=== PATIENT | female | born 1935 | race Caucasian/White ===

== ENCOUNTER → 2019-08-07 | Outpatient (CLI) | payer MEDICARE ==
[~2019-08-07] MED LIST: LEVSOD100; SIMV40; TRAM50 PO
== END | disposition home or self-care (01) ==
LOC: LAB SHORT 15:24 → PLD 15:24
DX: C44.41 Basal cell carcinoma of skin of scalp and neck (principal); L57.0 Actinic keratosis
CPT/HCPCS: 88305

== ENCOUNTER → 2019-12-04 | Outpatient (CLI) | payer MEDICARE, OTHER ==
[~2019-12-04] MED LIST changes: +Hydrocodone-Ap1 EA23 PO; +Vibramycin100 MG PO
== END | disposition home or self-care (01) ==
LOC: LAB SHORT 08:21 → PLD 08:21
DX: C44.41 Basal cell carcinoma of skin of scalp and neck (principal)
CPT/HCPCS: 88305

== ENCOUNTER 2020-01-12 19:03 | Emergency (ER) | payer MEDICARE, OTHER ==
[~2020-01-12] VITALS: Ht 162.6 cm; Wt 74.8 kg
[2020-01-12] MEDS ORDERED: Norco 5-325 Ta1 EACH PO (21:31)
== END 2020-01-12 21:37 | disposition home or self-care (01) ==
LOC: ER 19:03
DX: S51.012A Laceration without foreign body of left elbow, initial encounter (principal); W18.30XA Fall on same level, unspecified, initial encounter
CPT/HCPCS: 12032; 99283-25

== ENCOUNTER → 2020-09-03 | Outpatient (CLI) | payer MEDICARE, OTHER ==
[~2020-09-03] MED LIST changes: +Norco 5-325 Ta1 EACH PO
== END ==
LOC: LAB 12:14 → LAB SHORT 12:14
DX: D48.5 Neoplasm of uncertain behavior of skin (principal)
CPT/HCPCS: 88305

== ENCOUNTER → 2021-03-15 | Outpatient (CLI) | payer MEDICARE ==
[2021-03-17 15:09] LABS: Adenovirus F 40/41 Not Detected (NOT DETECT); Astrovirus Not Detected (NOT DETECT); Campylobacter Sp Not Detected (NOT DETECT); Cryptosporidium Not Detected (NOT DETECT); Cyclospora Cayetanensis Not Detected (NOT DETECT); E. Coli O157 Not Detected (NOT DETECT); Entamoeba Histolytica Not Detected (NOT DETECT); Enteroaggregative E. coli-EAEC Not Detected (NOT DETECT); Enteropathogenic E. coli-EPEC Not Detected (NOT DETECT); Enterotoxigenic E. coli-ETEC Not Detected (NOT DETECT); Giardia Lamblia Not Detected (NOT DETECT); Norovirus GI/GII Not Detected (NOT DETECT); Plesiomonas Shigelloides Not Detected (NOT DETECT); Rotavirus A Not Detected (NOT DETECT); Salmonella Sp Not Detected (NOT DETECT); Sapovirus Not Detected (NOT DETECT); Shiga Toxin-prod E. coli-STEC Not Detected (NOT DETECT); Shigella/Enteroin E. coli-EIEC Not Detected (NOT DETECT); Vibrio Cholerae Not Detected (NOT DETECT); Vibrio Sp Not Detected (NOT DETECT); Yersinia Enterocolitica Not Detected (NOT DETECT)
== END | disposition home or self-care (01) ==
LOC: LAB SHORT 08:30 → LAB 08:30
PROVIDERS: Family Medicine
DX: R19.7 Diarrhea, unspecified (principal)
CPT/HCPCS: 0097U

== ENCOUNTER → 2022-08-27 | Outpatient (CLI) | payer MEDICARE | END | disposition home or self-care (01) | LOC: LAB SHORT 14:43 → LAB 14:43 | DX: C44.629 Squamous cell carcinoma of skin of left upper limb, including shoulder (principal) | CPT/HCPCS: 88305 ==

== ENCOUNTER → 2022-09-23 | Outpatient (CLI) | payer MEDICARE | END | disposition home or self-care (01) | LOC: PLD 07:26 → LAB SHORT 07:26 | DX: C44.629 Squamous cell carcinoma of skin of left upper limb, including shoulder (principal) | CPT/HCPCS: 88305 ==

== ENCOUNTER → 2023-02-11 | Outpatient (CLI) | payer MEDICARE | LOC: PLD 12:54 | DX: C44.41 Basal cell carcinoma of skin of scalp and neck (principal); D04.5 Carcinoma in situ of skin of trunk ==

== ENCOUNTER 2023-11-26 14:33 | Observation (INO) | payer MEDICARE ==
[~2023-11-26] VITALS: Ht 172.7 cm; Wt 73.3 kg
[~2023-11-26 14:33] MED LIST changes: -SIMV40; +SIMV40 PO
[2023-11-26 15:40] LABS: BASOPHILS ABSOLUTE AUTO 0.03 K/mm3 (0.00-0.23); BASOPHILS PERCENT AUTO 1 % (0-2); EOSINOPHILS ABSOLUTE AUTO 0.06 K/mm3 (0.00-0.68); EOSINOPHILS PERCENT AUTO 1 % (0-6); Hematocrit 30.9 % (33.0-51.0); Hemoglobin 9.7 g/dL (11.5-16.0); IMMATURE GRAN ABSOLUTE AUTO 0.02 K/mm3 (0.00-0.10); IMMATURE GRAN PERCENT AUTO 0 % (0-1); LYMPHOCYTES ABSOLUTE AUTO 1.54 K/mm3 (0.84-5.20); LYMPHOCYTES PERCENT AUTO 25 % (21-46); MONOCYTES ABSOLUTE AUTO 0.56 K/mm3 (0.16-1.47); MONOCYTES PERCENT AUTO 9 % (4-13); Mean Corpuscular HGB 26.7 pg (26.0-34.0); Mean Corpuscular HGB Conc 31.4 g/dL (31.5-36.5); Mean Corpuscular Volume 85 fL (80-100); Mean Platelet Volume 9.7 fL (9.1-12.4); NEUTROPHILS PERCENT AUTO 64 % (41-73); Platelet Count 241 K/mm3 (150-400); RDW Coefficient Variation 15.2 % (11.7-14.2); RDW Standard Deviation 47.4 fL (35.1-46.3); Red Blood Cell Count 3.63 M/mm3 (3.80-5.20); White Blood Cell Count 6.21 K/mm3 (4.00-11.30)
[2023-11-26 15:58] LABS: Albumin, Blood 3.1 g/dL (3.4-5.0); Albumin/Globulin Ratio 1.2 (0.8-1.8); Bilirubin, Total 0.3 mg/dL (0.1-1.0); Bun/Creatinine Ratio 14.1 (12.0-20.0); Calcium, Blood 8.1 mg/dL (8.5-10.1); Creatinine, Blood 0.71 mg/dL (0.40-1.00); Globulin, Blood 2.6 g/dL (2.2-4.0); Potassium, Blood 3.5 mmol/L (3.5-5.5); Total Protein, Blood 5.7 g/dL (6.4-8.2)
[2023-11-26] MEDS ORDERED: Acetaminophen 500 MG Tab PO ONE (16:20)
[2023-11-26] MEDS ORDERED: OMEP20ER PO (16:31)
[2023-11-26] MEDS ORDERED: Bentyl20 MG PO (16:32)
[2023-11-26] MEDS ORDERED: ONE A DAY PREN1 EACH PO (16:33)
[2023-11-26] MEDS ORDERED: FISH OIL 1,0001 EA10 PO (16:33)
[2023-11-26] MEDS ORDERED: Preservision S1 EACH PO (16:34)
[2023-11-26] MEDS ORDERED: Ketorolac Tromethamine 15mg Vial IV ONE (16:40)
[2023-11-26] MEDS ORDERED: NS 1,000 ML IV SCH (17:50)
[2023-11-26] MEDS ORDERED: Aspirin 325 MG Tab PO ONE (18:00)
[2023-11-26 18:55] LABS: Source, Urine Straight Cath
[2023-11-26 19:09] LABS: Appearance, Urine Clear (Clear); Bilirubin, Urine Neg (Neg); Blood, Urine Neg (Neg); Color, Urine Yellow (P-Yellow); Glucose Qualitative, Urine Neg (Neg); Ketones, Urine 1+ (Neg); Leukocyte Esterase, Urine Neg (Neg); Nitrite, Urine Neg (Neg); Protein, Urine Neg (Neg); Urobilinogen, Urine NORM (Normal); pH, Urine 6.5 (5.0-8.0)
[2023-11-26 21:19] VITALS: BP 148/61
[2023-11-27 02:46] VITALS: BP 130/43
--- NOTE | 2023-11-27 04:16 | NUR ---
SHIFT SUMMARY: Pt is admitted for acute CVA and is a DNR. is alert and able to make most needs known. ADLs have been a mix of 1-2 p depending on activity. Has stated that she has had a minor headache but did not want anything for with when offered. Iv to right AC has been running NS at 150. Evangelista reports sinus in the 70s. PT was transferred from the ED about 2100. Daughter was in attendance. Was transferred to bed via slide. Meds, history were completed by this LN. admit assessment complete by 2nd charge. Wound to left lower leg pic taken and in chart.
[2023-11-27 07:44] VITALS: BP 148/69
[2023-11-27] MEDS ORDERED: Enoxaparin 40 MG/0.4 ML SYR SC SCH (09:00)
[2023-11-27] MEDS ORDERED: Aspirin 81 MG Chew PO SCH (09:00)
[2023-11-27] MEDS ORDERED: Clopidogrel Bisulfate 75 MG Tab PO SCH (10:00)
[2023-11-27 15:37] VITALS: BP 137/64
[2023-11-27 19:35] VITALS: BP 138/58
--- NOTE | 2023-11-27 19:36 | NUR ---
SHIFT SUMMARY: PT IS A/O X 3, [place], STANDBY ASSIST TO BATHROOM. PLEASANT AND COOPERATIVE. PT WORKED WITH PT TODAY AND DID WELL. PT DOES HAVE DIFFICULTY WITH FEEDING HERSELF. SPEECH THERAPY PLACED PRECAUTIONS. PT ALSO HAD DIFFICULTY WITH FOLLOWING DIRECTIONS DOING LEONARD CARE AFTER USING BATHROOM. PT C/O L ARM PAIN AND REPORTED SHE HAD FALLEN AT HOME ON THAT SIDE. NOTIFIED AND ORDER RECEIVED FOR X RAY. PT DOWN TO X-RAY AT SHIFT CHANGE. NO OTHER CONCERNS OR CHANGES.
[2023-11-28 04:23] VITALS: BP 156/67
--- NOTE | 2023-11-28 05:37 | NUR ---
EOS NOTE: PATIENT HAS BEEN FORGETFUL, DOES NOT ALWAYS USE CALL LIGHT FOR ASSISTANCE. PATIENT REQUIRES FREQUENT CUES TO USE WALKER APPROPRIATELY. VSS, MOSTLY CONTINENT OF BOWEL/BLADDER, MILDLY CONFUSED & IMPULSIVE BUT EASILY REORIENTED.
[2023-11-28 07:20] VITALS: BP 147/74
[2023-11-28] MEDS ORDERED: ATOR40TA PO (12:13)
[2023-11-28] MEDS ORDERED: ASPI81CH PO (12:13)
[2023-11-28] MEDS ORDERED: CLOP75 PO (12:14)
--- NOTE | 2023-11-28 15:55 | NUR ---
DISCHARGE SUMMARY: PT DISCHARGED HOME TODAY WITH HER DAUGHTER. DAUGHTER ASSSISTED PT WITH GETTING DRESSED. PT AND DAUGHTER EDUCATED ON DISCHARGE INSTRUCTIONS AND MEDICATIONS. PT ESCORTED TO POV VIA WHEELCHAIR BY STUDENT CHALINO LAMAR.
== END 2023-11-28 13:43 | disposition home or self-care (01) ==
LOC: ER 14:33 → MEDS 14:34
PROVIDERS: Emergency Medicine; ADMIT Internal Medicine
DX: I63.9 Cerebral infarction, unspecified (principal); I65.21 Occlusion and stenosis of right carotid artery; E03.9 Hypothyroidism, unspecified; E78.5 Hyperlipidemia, unspecified; K21.9 Gastro-esophageal reflux disease without esophagitis; Z66 Do not resuscitate; Z79.890 Hormone replacement therapy; Z79.899 Other long term (current) drug therapy
CPT/HCPCS: 70450; 70551; 73030; 80053; 81003; 84484; 85025; 92610; 93005; 93010; 93306; 93880; 96372; 96374; 97112; 97116; 97161; 99285-25; A9270; G0378; J1650; J1885; J7030

== ENCOUNTER → 2024-04-12 | Outpatient (CLI) | payer MEDICARE ==
[~2024-04-12] MED LIST changes: +ASPI81CH PO; +ATOR40TA PO; +Bentyl20 MG PO; +CLOP75 PO; +FISH OIL 1,0001 EA10 PO; +OMEP20ER PO; +ONE A DAY PREN1 EACH PO; +Preservision S1 EACH PO
== END ==
LOC: LAB SHORT 13:30 → LAB 13:30
DX: L08.9 Local infection of the skin and subcutaneous tissue, unspecified (principal)
CPT/HCPCS: 87070; 87205

== ENCOUNTER → 2024-05-05 | Outpatient (CLI) | payer MEDICARE ==
[~2024-05-05] MED LIST changes: +LIDO700A20 TOP
== END | disposition home or self-care (01) ==
LOC: LAB 05-04 15:01
DX: R35.0 Frequency of micturition (principal)
CPT/HCPCS: 87077; 87086; 87186

== ENCOUNTER 2024-05-12 12:45 | Emergency (ER) | payer MEDICARE ==
[~2024-05-12] VITALS: Ht 162.6 cm; Wt 69.8 kg
[~2024-05-12 12:45] MED LIST changes: -LIDO700A20 TOP
[2024-05-12] MEDS ORDERED: OxyCODONE HCL 5 MG TAB PO ONE (14:25)
[2024-05-12 14:52] LABS: Albumin, Blood 2.9 g/dL (3.4-5.0); Bilirubin, Total 0.2 mg/dL (0.1-1.0); Bun/Creatinine Ratio 12.9 (12.0-20.0); Calcium, Blood 7.9 mg/dL (8.5-10.1); Creatinine, Blood 0.62 mg/dL (0.40-1.00); Globulin, Blood 2.8 g/dL (2.2-4.0); Potassium, Blood 4.1 mmol/L (3.5-5.5); Total Protein, Blood 5.7 g/dL (6.4-8.2)
[2024-05-12 15:05] LABS: BASOPHILS ABSOLUTE AUTO 0.05 K/mm3 (0.00-0.23); BASOPHILS PERCENT AUTO 1 % (0-2); EOSINOPHILS ABSOLUTE AUTO 0.04 K/mm3 (0.00-0.68); EOSINOPHILS PERCENT AUTO 1 % (0-6); Hemoglobin 9.4 g/dL (11.5-16.0); IMMATURE GRAN ABSOLUTE AUTO 0.02 K/mm3 (0.00-0.10); IMMATURE GRAN PERCENT AUTO 0 % (0-1); LYMPHOCYTES PERCENT AUTO 25 % (21-46); MONOCYTES ABSOLUTE AUTO 0.44 K/mm3 (0.16-1.47); MONOCYTES PERCENT AUTO 8 % (4-13); Mean Corpuscular HGB 28.5 pg (26.0-34.0); Mean Corpuscular HGB Conc 32.4 g/dL (31.5-36.5); Mean Corpuscular Volume 88 fL (80-100); Mean Platelet Volume 9.8 fL (9.1-12.4); NEUTROPHILS ABSOLUTE AUTO 3.45 K/mm3 (1.96-9.15); NEUTROPHILS PERCENT AUTO 65 % (41-73); Platelet Count 323 K/mm3 (150-400); RDW Coefficient Variation 16.7 % (11.7-14.2); RDW Standard Deviation 53.9 fL (35.1-46.3)
[2024-05-12 17:54] VITALS: BP 146/72
[2024-05-12] MEDS ORDERED: LIDO700A20 TOP (18:35)
== END 2024-05-12 18:58 | disposition home or self-care (01) ==
LOC: ER 12:45
PROVIDERS: Student in an Organized Health Care Education/Training Program
DX: S80.02XA Contusion of left knee, initial encounter (principal); M25.551 Pain in right hip; W18.30XA Fall on same level, unspecified, initial encounter; Z91.030 Bee allergy status; Z79.899 Other long term (current) drug therapy; Z79.82 Long term (current) use of aspirin
CPT/HCPCS: 72192; 73562-LT; 80053; 85025; 99285-25; A9270

== ENCOUNTER → 2024-05-26 | Outpatient (CLI) | payer MEDICARE ==
[~2024-05-26] MED LIST changes: +LIDO700A20 TOP
[2024-05-26 15:20] LABS: Source, Urine Voided
[2024-05-26 16:08] LABS: Appearance, Urine Clear (Clear); Bilirubin, Urine Neg (Neg); Blood, Urine Neg (Neg); Glucose Qualitative, Urine Neg (Neg); Ketones, Urine Neg (Neg); Leukocyte Esterase, Urine Neg (Neg); Nitrite, Urine Neg (Neg); Protein, Urine Neg (Neg); Specific Gravity, Urine 1.005 (1.003-1.022); Urobilinogen, Urine NORM (Normal)
[2024-05-26 16:15] LABS: Color, Urine Pale Yellow (P-Yellow)
== END ==
LOC: LAB SHORT 15:17 → LAB 15:17
PROVIDERS: Family Medicine
DX: N39.0 Urinary tract infection, site not specified (principal)
CPT/HCPCS: 81003

== ENCOUNTER 2024-07-29 15:18 | Emergency (ER) | payer MEDICARE ==
[~2024-07-29] VITALS: Ht 167.6 cm; Wt 70.3 kg
[2024-07-29 15:50] LABS: BASOPHILS ABSOLUTE AUTO 0.01 K/mm3 (0.00-0.23); BASOPHILS PERCENT AUTO 0 % (0-2); EOSINOPHILS PERCENT AUTO 0 % (0-6); Hemoglobin 10.8 g/dL (11.5-16.0); IMMATURE GRAN ABSOLUTE AUTO 0.06 K/mm3 (0.00-0.10); IMMATURE GRAN PERCENT AUTO 0 % (0-1); LYMPHOCYTES ABSOLUTE AUTO 1.13 K/mm3 (0.84-5.20); LYMPHOCYTES PERCENT AUTO 8 % (21-46); MONOCYTES ABSOLUTE AUTO 0.95 K/mm3 (0.16-1.47); MONOCYTES PERCENT AUTO 6 % (4-13); Mean Corpuscular HGB 27.6 pg (26.0-34.0); Mean Corpuscular HGB Conc 32.7 g/dL (31.5-36.5); Mean Corpuscular Volume 84 fL (80-100); Mean Platelet Volume 8.9 fL (9.1-12.4); NEUTROPHILS ABSOLUTE AUTO 12.63 K/mm3 (1.96-9.15); NEUTROPHILS PERCENT AUTO 86 % (41-73); Platelet Count 643 K/mm3 (150-400); RDW Coefficient Variation 14.6 % (11.7-14.2); Red Blood Cell Count 3.91 M/mm3 (3.80-5.20); White Blood Cell Count 14.78 K/mm3 (4.00-11.30)
[2024-07-29 15:54] LABS: Albumin, Blood 2.6 g/dL (3.4-5.0); Albumin/Globulin Ratio 0.7 (0.8-1.8); Bilirubin, Total 0.4 mg/dL (0.1-1.0); Bun/Creatinine Ratio 26.3 (12.0-20.0); Calcium, Blood 8.5 mg/dL (8.5-10.1); Creatinine, Blood 0.57 mg/dL (0.40-1.00); Globulin, Blood 3.9 g/dL (2.2-4.0); Potassium, Blood 4.3 mmol/L (3.5-5.5); Total Protein, Blood 6.5 g/dL (6.4-8.2)
[2024-07-29 17:11] LABS: Source, Urine Clean Catch
[2024-07-29 17:19] LABS: Bilirubin, Urine Neg (Neg); Blood, Urine Neg (Neg); Color, Urine Yellow (P-Yellow); Glucose Qualitative, Urine Neg (Neg); Ketones, Urine Neg (Neg); Leukocyte Esterase, Urine Neg (Neg); Nitrite, Urine Neg (Neg); Protein, Urine 2+ (Neg); Specific Gravity, Urine 1.015 (1.003-1.022); Urobilinogen, Urine NORM (Normal)
[2024-07-29 17:28] LABS: Appearance, Urine Hazy (Clear)
[2024-07-29 17:30] LABS: Amorphous Light (0-Heavy); Bacteria Mod /hpf; Calcium Oxalate Crystals Rare /hpf; Hyaline Casts 0-2 /lpf (0-2); Mucus Mod (0-Heavy); Red Blood Cells, Urine 0-2 /hpf (0-2); Renal Epithelial Rare /hpf (0-Rare); Squamous Epithelial Cells Rare /hpf (Few); White Blood Cells, Urine 0-2 /hpf (0-5)
[2024-07-29 17:31] LABS: Transitional Epithelial Cells Rare /hpf (0-Rare)
[2024-07-29] MEDS ORDERED: Metoclopramide HCl 5MG / ML 2ML Vial IV ONE (18:45)
[2024-07-29 22:44] VITALS: BP 127/56
== END 2024-07-29 22:49 | disposition home or self-care (01) ==
LOC: ER 15:18
PROVIDERS: Student in an Organized Health Care Education/Training Program
DX: R14.0 Abdominal distension (gaseous) (principal); R30.0 Dysuria; R11.10 Vomiting, unspecified; E78.5 Hyperlipidemia, unspecified; E03.9 Hypothyroidism, unspecified; Z79.82 Long term (current) use of aspirin; Z79.02 Long term (current) use of antithrombotics/antiplatelets; Z79.899 Other long term (current) drug therapy; Z91.013 Allergy to seafood
CPT/HCPCS: 51701; 51702; 51798; 74177; 80053; 81001; 83605; 85025; 96374-59; 99284; J2765; Q9967

== ENCOUNTER → 2024-07-31 | Outpatient (CLI) | payer MEDICARE ==
[2024-07-31 10:45] LABS: Source, Urine Foley catheter
[2024-07-31 13:36] LABS: Bilirubin, Urine Neg (Neg); Blood, Urine Neg (Neg); Glucose Qualitative, Urine Neg (Neg); Ketones, Urine 2+ (Neg); Leukocyte Esterase, Urine Neg (Neg); Nitrite, Urine Neg (Neg); Protein, Urine 1+ (Neg); Urobilinogen, Urine NORM (Normal)
[2024-07-31 13:42] LABS: Appearance, Urine Clear (Clear); Color, Urine Yellow (P-Yellow)
== END ==
LOC: LAB SHORT 08:45 → LAB 08:45
PROVIDERS: Family Medicine
DX: N39.0 Urinary tract infection, site not specified (principal); R10.30 Lower abdominal pain, unspecified
CPT/HCPCS: 87086

== ENCOUNTER 2024-08-03 19:04 | Inpatient (IN) | payer MEDICARE ==
[2024-08-03] VITALS (10 sets, daily range): BP systolic 104–121; BP diastolic 46–75
[~2024-08-03] VITALS: Ht 160 cm; Wt 71.2 kg
[~2024-08-03 19:04] MED LIST changes: +ATOR20 PO; -ATOR40TA PO; +EUTHYROX125 MCG PO; -LEVSOD100
[2024-08-03] MEDS ORDERED: Morphine Sulfate 4 MG/1 ML Injection IV ONE (19:40)
[2024-08-03] MEDS ORDERED: Ondansetron HCl 2 MG / ML 2ML Vial IV ONE (19:40)
[2024-08-03] MEDS ORDERED: Metoclopramide HCl 5MG / ML 2ML Vial IV ONE (20:00)
[2024-08-03] MEDS ORDERED: HYDROmorphone HCl/Pf 1MG SYR IV PRN ×2 (20:00→22:20)
[2024-08-03] MEDS ORDERED: Piperacillin/Tazobactam Sod 4.5 GM in NS 100 ML IV ONE (20:45)
[2024-08-03] MEDS ORDERED: NS 1,000 ML IV SCH (20:45)
[2024-08-03] MEDS ORDERED: FLU VACC TS2024-25(6MOS UP)/PF 45 MCG/0.5 ML SYRINGE IM SCH (21:05)
[2024-08-03] MEDS ORDERED: FentaNYL Citrate 50 MCG/ML 2 ML Injection IV PRN ×2 (21:05→22:20)
[2024-08-03] MEDS ORDERED: NS 1,000 ML IV ONE (21:05)
[2024-08-03] MEDS ORDERED: Ondansetron HCl 2 MG / ML 2ML Vial IV PRN ×2 (21:05→22:20)
[2024-08-03] MEDS ORDERED: Bupivacaine 0.5% HCl 5 MG/ML 30MLVIAL ONE (21:37)
[2024-08-03] MEDS ORDERED: Albuterol 2.5 MG/3 ML VIAL INH PRN (22:20)
[2024-08-03] MEDS ORDERED: FentaNYL Citrate 50 MCG/ML 2 ML Injection ONE (22:35)
[2024-08-03] MEDS ORDERED: propofoL 20 ML IV ONE (22:35)
[2024-08-03] MEDS ORDERED: Dexamethasone Sod Phos 10 MG/ML 1ML VIAL ONE (22:36)
[2024-08-03] MEDS ORDERED: Rocuronium Bromide 10 MG/ML 5ML Injection IV ONE (22:36)
[2024-08-03] MEDS ORDERED: Ondansetron HCl 2 MG / ML 2ML Vial ONE (22:36)
[2024-08-03] MEDS ORDERED: Phenylephrine HCl 100 MCG/ML-NS 10MLSYR (1MG/10ML) ONE (22:53)
[2024-08-04] VITALS (51 sets, daily range): BP systolic 84–126; BP diastolic 34–80
[2024-08-04] MEDS ORDERED: Sugammadex Sodium 200 MG/2ML SDV (100 MG/ML) ONE (01:09)
[2024-08-04] MEDS ORDERED: Piperacillin/Tazobactam Sod 4.5 GM in NS 100 ML IV SCH (02:00)
[2024-08-04] MEDS ORDERED: Acetaminophen 325 MG TABLET PO PRN (02:00)
[2024-08-04] MEDS ORDERED: NS 1,000 ML IV SCH ×2 (02:05→15:35)
[2024-08-04 04:18] LABS: Hematocrit 31.2 % (33.0-51.0); Hemoglobin 9.5 g/dL (11.5-16.0); Mean Corpuscular HGB 27.1 pg (26.0-34.0); Mean Corpuscular HGB Conc 30.4 g/dL (31.5-36.5); Mean Platelet Volume 8.7 fL (9.1-12.4); Platelet Count 475 K/mm3 (150-400); RDW Coefficient Variation 15.1 % (11.7-14.2); RDW Standard Deviation 49.5 fL (35.1-46.3); Red Blood Cell Count 3.51 M/mm3 (3.80-5.20)
[2024-08-04 04:31] LABS: Mean Corpuscular Volume 89 fL (80-100)
[2024-08-04 04:39] LABS: BAND PERCENT MAN 11 % (0-8); BASOPHILS PERCENT MAN 0 % (0-2); EOSINOPHILS PERCENT MAN 0 % (0-6); LYMPHOCYTES ABSOLUTE MAN 0.32 K/mm3 (0.84-5.20); LYMPHOCYTES PERCENT MAN 6 % (21-46); MONOCYTES ABSOLUTE MAN 0.27 K/mm3 (0.16-1.47); MONOCYTES PERCENT MAN 5 % (4-13); SEG NEUTROPHILS PERCENT MAN 78 % (41-73); TOTAL CELLS COUNTED 100
[2024-08-04 04:57] LABS: Albumin/Globulin Ratio 0.6 (0.8-1.8); Bilirubin, Total 0.3 mg/dL (0.1-1.0); Bun/Creatinine Ratio 27.8 (12.0-20.0); Calcium, Blood 7.4 mg/dL (8.5-10.1); Creatinine, Blood 0.5 mg/dL (0.40-1.00); Globulin, Blood 3.2 g/dL (2.2-4.0); Potassium, Blood 4.5 mmol/L (3.5-5.5); Total Protein, Blood 5.2 g/dL (6.4-8.2)
[2024-08-04] MEDS ORDERED: OxyCODONE 5 mg/Acetamin 325 mg TABLET PO PRN (15:35)
[2024-08-05] VITALS (24 sets, daily range): BP systolic 88–124; BP diastolic 38–81
[2024-08-05 03:40] LABS: Hemoglobin 7.7 g/dL (11.5-16.0); Mean Corpuscular HGB 27.2 pg (26.0-34.0); Mean Corpuscular HGB Conc 32.1 g/dL (31.5-36.5); Mean Corpuscular Volume 85 fL (80-100); Mean Platelet Volume 8.5 fL (9.1-12.4); Platelet Count 427 K/mm3 (150-400); RDW Coefficient Variation 15.1 % (11.7-14.2); Red Blood Cell Count 2.83 M/mm3 (3.80-5.20); White Blood Cell Count 8.95 K/mm3 (4.00-11.30)
[2024-08-05 03:59] LABS: Bun/Creatinine Ratio 20.1 (12.0-20.0); Calcium, Blood 7.4 mg/dL (8.5-10.1); Creatinine, Blood 0.6 mg/dL (0.40-1.00); Potassium, Blood 3.4 mmol/L (3.5-5.5)
[2024-08-05] MEDS ORDERED: Potassium Chloride 20 MEQ TabCR PO ONE (09:00)
[2024-08-05 09:38] LABS: Hematocrit 28.3 % (33.0-51.0); Hemoglobin 8.8 g/dL (11.5-16.0)
[2024-08-05] MEDS ORDERED: Lactated Ringer's 1,000 ML IV ONE (10:45)
[2024-08-05] MEDS ORDERED: Bisacodyl 10 MG Supp PR PRN (11:45)
[2024-08-05] MEDS ORDERED: HYDROmorphone HCl/Pf 1MG SYR IV ONE (11:50)
[2024-08-05] MEDS ORDERED: HYDROmorphone HCl/Pf 1MG SYR IV PRN (11:50)
[2024-08-05] MEDS ORDERED: OxyCODONE HCL 5 MG TAB PO PRN (13:10)
[2024-08-05] MEDS ORDERED: Acetaminophen 650 MG Supp PR PRN (13:15)
[2024-08-05] MEDS ORDERED: CALCIUM GLUC IN NACL, ISO-OSM 100 ML IV ONE (16:25)
[2024-08-05] MEDS ORDERED: Calcium Chloride 10% 2,000 MG in NS 100 ML IV ONE (16:25)
[2024-08-06] VITALS (21 sets, daily range): BP systolic 91–114; BP diastolic 40–75
[2024-08-06 04:44] LABS: Hematocrit 27.4 % (33.0-51.0); Hemoglobin 8.6 g/dL (11.5-16.0); Mean Corpuscular HGB 27.3 pg (26.0-34.0); Mean Corpuscular HGB Conc 31.4 g/dL (31.5-36.5); Mean Corpuscular Volume 87 fL (80-100); Mean Platelet Volume 8.7 fL (9.1-12.4); Platelet Count 508 K/mm3 (150-400); RDW Coefficient Variation 15.3 % (11.7-14.2); RDW Standard Deviation 48.8 fL (35.1-46.3); Red Blood Cell Count 3.15 M/mm3 (3.80-5.20); White Blood Cell Count 10.74 K/mm3 (4.00-11.30)
[2024-08-06 05:08] LABS: Bun/Creatinine Ratio 13.2 (12.0-20.0); Creatinine, Blood 0.61 mg/dL (0.40-1.00)
[2024-08-06] MEDS ORDERED: Pantoprazole Sodium 40 MG Tab PO SCH (06:00)
[2024-08-06] MEDS ORDERED: Levothyroxine Sodium 0.1 MG Tab PO SCH (06:00)
[2024-08-06] MEDS ORDERED: Enoxaparin 40 MG/0.4 ML SYR SC SCH (09:00)
[2024-08-06] MEDS ORDERED: Atorvastatin 40 MG Tab PO SCH (09:00)
[2024-08-06] MEDS ORDERED: Mineral Oil 133 ML Enema PR ONE (09:25)
[2024-08-06] MEDS ORDERED: Lactated Ringer's 1,000 ML IV ONE (09:25)
[2024-08-07] VITALS (17 sets, daily range): BP systolic 89–126; BP diastolic 40–65
[2024-08-07 03:49] LABS: Hematocrit 24.7 % (33.0-51.0); Hemoglobin 7.8 g/dL (11.5-16.0); Mean Corpuscular HGB 27.3 pg (26.0-34.0); Mean Corpuscular HGB Conc 31.6 g/dL (31.5-36.5); Mean Corpuscular Volume 86 fL (80-100); Mean Platelet Volume 8.7 fL (9.1-12.4); Platelet Count 454 K/mm3 (150-400); RDW Coefficient Variation 15.2 % (11.7-14.2); RDW Standard Deviation 48.8 fL (35.1-46.3); Red Blood Cell Count 2.86 M/mm3 (3.80-5.20); White Blood Cell Count 9.34 K/mm3 (4.00-11.30)
[2024-08-07 04:01] LABS: Bun/Creatinine Ratio 17.6 (12.0-20.0); Calcium, Blood 8.2 mg/dL (8.5-10.1); Creatinine, Blood 0.51 mg/dL (0.40-1.00); Potassium, Blood 3.7 mmol/L (3.5-5.5)
[2024-08-07] MEDS ORDERED: NS 250 ML IV PRN (12:10)
[2024-08-08] VITALS (7 sets, daily range): BP systolic 100–126; BP diastolic 41–104
[2024-08-09] MEDS ORDERED: Piperacillin/Tazobactam Sod 4.5 GM in NS 100 ML IV SCH
[2024-08-09 00:16] VITALS: BP 121/50
[2024-08-09 04:00] VITALS: BP 111/64
[2024-08-09 06:58] LABS: BASOPHILS ABSOLUTE AUTO 0.02 K/mm3 (0.00-0.23); BASOPHILS PERCENT AUTO 0 % (0-2); EOSINOPHILS ABSOLUTE AUTO 0.19 K/mm3 (0.00-0.68); EOSINOPHILS PERCENT AUTO 2 % (0-6); Hematocrit 26.8 % (33.0-51.0); Hemoglobin 8.5 g/dL (11.5-16.0); IMMATURE GRAN ABSOLUTE AUTO 0.15 K/mm3 (0.00-0.10); IMMATURE GRAN PERCENT AUTO 2 % (0-1); LYMPHOCYTES ABSOLUTE AUTO 1.01 K/mm3 (0.84-5.20); LYMPHOCYTES PERCENT AUTO 13 % (21-46); MONOCYTES ABSOLUTE AUTO 0.59 K/mm3 (0.16-1.47); MONOCYTES PERCENT AUTO 8 % (4-13); Mean Corpuscular HGB 26.6 pg (26.0-34.0); Mean Corpuscular HGB Conc 31.7 g/dL (31.5-36.5); Mean Corpuscular Volume 84 fL (80-100); Mean Platelet Volume 8.9 fL (9.1-12.4); NEUTROPHILS ABSOLUTE AUTO 5.95 K/mm3 (1.96-9.15); NEUTROPHILS PERCENT AUTO 75 % (41-73); Platelet Count 463 K/mm3 (150-400); RDW Standard Deviation 46.4 fL (35.1-46.3); White Blood Cell Count 7.91 K/mm3 (4.00-11.30)
[2024-08-09 07:12] LABS: Bun/Creatinine Ratio 14.2 (12.0-20.0); Creatinine, Blood 0.49 mg/dL (0.40-1.00); Potassium, Blood 3.1 mmol/L (3.5-5.5)
[2024-08-09 08:17] VITALS: BP 124/53
[2024-08-09] MEDS ORDERED: Potassium Chloride 20 MEQ TabCR PO ONE (09:00)
[2024-08-09 15:30] VITALS: BP 108/48
[2024-08-09 20:21] VITALS: BP 113/49
[2024-08-09 21:04] VITALS: BP 116/55
[2024-08-10 04:24] VITALS: BP 119/59
[2024-08-10 06:28] LABS: Hematocrit 25.9 % (33.0-51.0); Hemoglobin 8.3 g/dL (11.5-16.0); Mean Corpuscular HGB 26.8 pg (26.0-34.0); Mean Corpuscular Volume 84 fL (80-100); Platelet Count 469 K/mm3 (150-400); RDW Coefficient Variation 15.4 % (11.7-14.2); RDW Standard Deviation 46.9 fL (35.1-46.3); White Blood Cell Count 9.68 K/mm3 (4.00-11.30)
[2024-08-10 06:59] VITALS: BP 108/53
[2024-08-10 07:07] LABS: Bun/Creatinine Ratio 16.7 (12.0-20.0); Calcium, Blood 7.9 mg/dL (8.5-10.1); Creatinine, Blood 0.54 mg/dL (0.40-1.00)
[2024-08-10] MEDS ORDERED: TPN Consult Notification XX ONE (12:40)
[2024-08-10 13:06] LABS: Magnesium, Blood 1.9 mg/dL (1.6-2.4)
[2024-08-10 13:09] LABS: Phosphorus, Blood 1.5 mg/dL (2.5-4.9)
[2024-08-10 14:10] VITALS: BP 102/52
[2024-08-10] MEDS ORDERED: Trospium Chloride 20 MG Tab PO SCH (14:40)
[2024-08-10] MEDS ORDERED: NS 500 ML IV SCH ×2 (14:40→23:00)
[2024-08-10] MEDS ORDERED: Parenteral Electolytes 40 ML,Potassium Phosphate Dibasic 30 MM,Multivitamins 10 ML,ZINC... IV SCH (17:00)
[2024-08-10] MEDS ORDERED: PARENTERAL ELECTOLYTES POTASSIUM PHOSPHATE DIBASIC MM MULTIVITAMINS ZINC IV SCH (17:00)
[2024-08-10] MEDS ORDERED: [UNRECOGNIZED DRUG - OTHER] IV SCH (17:00)
[2024-08-10 17:56] VITALS: BP 113/52
[2024-08-10 19:17] VITALS: BP 109/48
[2024-08-10 21:14] LABS: Source, Urine Foley catheter
[2024-08-10 21:24] LABS: Appearance, Urine Hazy (Clear); Bilirubin, Urine Neg (Neg); Blood, Urine 5+ (Neg); Color, Urine Amber (P-Yellow); Glucose Qualitative, Urine Neg (Neg); Ketones, Urine Neg (Neg); Leukocyte Esterase, Urine 2+ (Neg); Nitrite, Urine Pos (Neg); Protein, Urine 3+ (Neg); Specific Gravity, Urine 1.015 (1.003-1.022); Urobilinogen, Urine NORM (Normal)
[2024-08-10 21:46] LABS: Amorphous Light (0-Heavy); Bacteria Mod /hpf; Calcium Oxalate Crystals Few /hpf; Mucus Light (0-Heavy); Red Blood Cells, Urine TNTC /hpf (0-2); Squamous Epithelial Cells Few /hpf (Few); White Blood Cells, Urine 0-2 /hpf (0-5)
[2024-08-11 04:10] VITALS: BP 122/58
[2024-08-11 05:20] LABS: Hematocrit 22.9 % (33.0-51.0); Hemoglobin 7.4 g/dL (11.5-16.0); Mean Corpuscular HGB 26.4 pg (26.0-34.0); Mean Corpuscular HGB Conc 32.3 g/dL (31.5-36.5); Mean Corpuscular Volume 82 fL (80-100); Mean Platelet Volume 8.8 fL (9.1-12.4); Platelet Count 426 K/mm3 (150-400); RDW Coefficient Variation 15.4 % (11.7-14.2); RDW Standard Deviation 45.2 fL (35.1-46.3); White Blood Cell Count 8.14 K/mm3 (4.00-11.30)
[2024-08-11 05:48] LABS: Alanine Aminotransfer (ALT/SGP 9 U/L (12-78); Albumin, Blood 1.4 g/dL (3.4-5.0); Albumin/Globulin Ratio 0.5 (0.8-1.8); Alk Phos 61 U/L (50-136); Anion Gap 7 mmol/L (3-11); Aspartate Aminotrans (AST/SGOT 18 U/L (12-37); Bilirubin, Total 0.2 mg/dL (0.1-1.0); Blood Urea Nitrogen 10 mg/dL (8-24); Bun/Creatinine Ratio 19.4 (12.0-20.0); CO2, Blood 31 mmol/L (21-32); Chloride, Blood 108 mmol/L (98-108); Creatinine, Blood 0.52 mg/dL (0.40-1.00); Glomerular Filtration Rate 89 (60-); Glucose, Blood 106 mg/dL (70-99); Potassium, Blood 3.6 mmol/L (3.5-5.5); Sodium, Blood 142 mmol/L (136-145); Total Protein, Blood 4.4 g/dL (6.4-8.2); Triglycerides 81 mg/dL (30-160)
[2024-08-11 07:33] VITALS: BP 123/51
[2024-08-11] MEDS ORDERED: Piperacillin/Tazobactam Sod 4.5 GM ONE (07:58)
[2024-08-11 14:17] VITALS: BP 117/53
[2024-08-11] MEDS ORDERED: Piperacillin/Tazobactam Sod 2.25 GM in NS 50 ML IV SCH (16:00)
[2024-08-11 19:08] VITALS: BP 128/58
[2024-08-12 04:33] VITALS: BP 119/59
[2024-08-12 05:43] LABS: Bun/Creatinine Ratio 16.4 (12.0-20.0); Calcium, Blood 7.9 mg/dL (8.5-10.1); Creatinine, Blood 0.55 mg/dL (0.40-1.00); Potassium, Blood 3.7 mmol/L (3.5-5.5)
[2024-08-12 06:57] VITALS: BP 139/54
[2024-08-12] MEDS ORDERED: Prochlorperazine Edisylate 10 mg Vial IV PRN (08:20)
[2024-08-12] MEDS ORDERED: Fluconazole 100 MG Tab PO SCH ×2 (09:00)
[2024-08-12 14:56] VITALS: BP 125/57
[2024-08-12 19:21] VITALS: BP 127/55
[2024-08-13 03:23] VITALS: BP 124/52
[2024-08-13 05:40] LABS: BASOPHILS ABSOLUTE AUTO 0.02 K/mm3 (0.00-0.23); BASOPHILS PERCENT AUTO 0 % (0-2); EOSINOPHILS ABSOLUTE AUTO 0.19 K/mm3 (0.00-0.68); EOSINOPHILS PERCENT AUTO 2 % (0-6); Hematocrit 22.7 % (33.0-51.0); Hemoglobin 7.4 g/dL (11.5-16.0); IMMATURE GRAN PERCENT AUTO 1 % (0-1); LYMPHOCYTES ABSOLUTE AUTO 1.36 K/mm3 (0.84-5.20); LYMPHOCYTES PERCENT AUTO 14 % (21-46); MONOCYTES ABSOLUTE AUTO 0.63 K/mm3 (0.16-1.47); MONOCYTES PERCENT AUTO 7 % (4-13); Mean Corpuscular HGB 26.6 pg (26.0-34.0); Mean Corpuscular HGB Conc 32.6 g/dL (31.5-36.5); Mean Corpuscular Volume 82 fL (80-100); Mean Platelet Volume 8.8 fL (9.1-12.4); NEUTROPHILS ABSOLUTE AUTO 7.15 K/mm3 (1.96-9.15); NEUTROPHILS PERCENT AUTO 76 % (41-73); Platelet Count 399 K/mm3 (150-400); RDW Coefficient Variation 15.5 % (11.7-14.2); RDW Standard Deviation 45.7 fL (35.1-46.3); Red Blood Cell Count 2.78 M/mm3 (3.80-5.20); White Blood Cell Count 9.45 K/mm3 (4.00-11.30)
[2024-08-13 05:59] LABS: Albumin, Blood 1.6 g/dL (3.4-5.0); Albumin/Globulin Ratio 0.5 (0.8-1.8); Bilirubin, Total 0.2 mg/dL (0.1-1.0); Bun/Creatinine Ratio 20.6 (12.0-20.0); Calcium, Blood 8.5 mg/dL (8.5-10.1); Creatinine, Blood 0.54 mg/dL (0.40-1.00); Globulin, Blood 3.3 g/dL (2.2-4.0); Magnesium, Blood 2.4 mg/dL (1.6-2.4); Phosphorus, Blood 3.6 mg/dL (2.5-4.9); Potassium, Blood 4.6 mmol/L (3.5-5.5); Total Protein, Blood 4.9 g/dL (6.4-8.2)
[2024-08-13 07:08] VITALS: BP 125/54
[2024-08-13 14:31] VITALS: BP 131/64
[2024-08-13] MEDS ORDERED: Parenteral Electolytes 40 ML,Potassium Phosphate Dibasic 30 MM,Multivitamins 10 ML,ZINC... IV SCH (17:00)
[2024-08-13 19:59] VITALS: BP 120/51
[2024-08-13] MEDS ORDERED: Sennosides 8.6 MG Tab PO SCH (21:00)
[2024-08-13] MEDS ORDERED: ESCI10 PO (21:44)
[2024-08-13] MEDS ORDERED: MELATONIN5 M1 PO (21:45)
[2024-08-13] MEDS ORDERED: MIRALAX17 GM PO (21:46)
[2024-08-13] MEDS ORDERED: DOCU100 PO (21:46)
[2024-08-13] MEDS ORDERED: ACET500 PO (21:47)
[2024-08-13] MEDS ORDERED: ALMACONE SUSPE355 ML PO (21:49)
[2024-08-13] MEDS ORDERED: LOPERAMIDE1 MG/7.10 PO (21:50)
[2024-08-13] MEDS ORDERED: DULCOLAX400 MG/5 M PO (21:52)
[2024-08-13] MEDS ORDERED: ONDA4 PO (21:52)
[2024-08-14 04:25] VITALS: BP 124/56
[2024-08-14 05:20] LABS: Hematocrit 24.8 % (33.0-51.0); Hemoglobin 8.1 g/dL (11.5-16.0); Mean Corpuscular HGB 26.7 pg (26.0-34.0); Mean Corpuscular HGB Conc 32.7 g/dL (31.5-36.5); Mean Corpuscular Volume 82 fL (80-100); Mean Platelet Volume 9.5 fL (9.1-12.4); Platelet Count 456 K/mm3 (150-400); RDW Coefficient Variation 15.7 % (11.7-14.2); RDW Standard Deviation 46.2 fL (35.1-46.3); Red Blood Cell Count 3.03 M/mm3 (3.80-5.20); White Blood Cell Count 11.82 K/mm3 (4.00-11.30)
[2024-08-14 05:43] LABS: Bun/Creatinine Ratio 23.3 (12.0-20.0); Calcium, Blood 8.5 mg/dL (8.5-10.1); Creatinine, Blood 0.56 mg/dL (0.40-1.00); Magnesium, Blood 2.5 mg/dL (1.6-2.4); Potassium, Blood 4.8 mmol/L (3.5-5.5)
[2024-08-14] MEDS ORDERED: HYDROmorphone HCl/Pf 1MG SYR IV PRN (06:00)
[2024-08-14 07:23] VITALS: BP 112/55
[2024-08-14] MEDS ORDERED: Furosemide 10 MG/ML 4ML Vial IV ONE (10:00)
[2024-08-14] MEDS ORDERED: TPN Consult Notification XX ONE (11:25)
[2024-08-14] MEDS ORDERED: Protein Supplement 30 ML UD PO SCH (11:30)
[2024-08-14] MEDS ORDERED: Mineral Oil 133 ML Enema PR ONE (14:45)
[2024-08-14 15:40] VITALS: BP 108/78
[2024-08-14] MEDS ORDERED: Parenteral Electolytes 40 ML,Potassium Phosphate Dibasic 30 MM,Multivitamins 10 ML,ZINC... IV SCH (17:00)
[2024-08-14 19:40] VITALS: BP 115/55
[2024-08-15 04:29] VITALS: BP 139/64
[2024-08-15 04:56] LABS: BASOPHILS ABSOLUTE AUTO 0.03 K/mm3 (0.00-0.23); BASOPHILS PERCENT AUTO 0 % (0-2); EOSINOPHILS ABSOLUTE AUTO 0.13 K/mm3 (0.00-0.68); EOSINOPHILS PERCENT AUTO 1 % (0-6); Hematocrit 24.6 % (33.0-51.0); Hemoglobin 8.2 g/dL (11.5-16.0); IMMATURE GRAN ABSOLUTE AUTO 0.07 K/mm3 (0.00-0.10); IMMATURE GRAN PERCENT AUTO 1 % (0-1); LYMPHOCYTES PERCENT AUTO 14 % (21-46); MONOCYTES ABSOLUTE AUTO 0.84 K/mm3 (0.16-1.47); MONOCYTES PERCENT AUTO 8 % (4-13); Mean Corpuscular HGB 26.8 pg (26.0-34.0); Mean Corpuscular HGB Conc 33.3 g/dL (31.5-36.5); Mean Corpuscular Volume 80 fL (80-100); Mean Platelet Volume 9.3 fL (9.1-12.4); NEUTROPHILS ABSOLUTE AUTO 7.85 K/mm3 (1.96-9.15); NEUTROPHILS PERCENT AUTO 76 % (41-73); Platelet Count 467 K/mm3 (150-400); RDW Coefficient Variation 15.4 % (11.7-14.2); RDW Standard Deviation 44.7 fL (35.1-46.3); Red Blood Cell Count 3.06 M/mm3 (3.80-5.20); White Blood Cell Count 10.32 K/mm3 (4.00-11.30)
[2024-08-15 05:31] LABS: Albumin, Blood 1.9 g/dL (3.4-5.0); Albumin/Globulin Ratio 0.5 (0.8-1.8); Bilirubin, Total 0.2 mg/dL (0.1-1.0); Bun/Creatinine Ratio 32.9 (12.0-20.0); Calcium, Blood 8.8 mg/dL (8.5-10.1); Creatinine, Blood 0.49 mg/dL (0.40-1.00); Magnesium, Blood 2.5 mg/dL (1.6-2.4); Phosphorus, Blood 3.9 mg/dL (2.5-4.9); Potassium, Blood 4.7 mmol/L (3.5-5.5); Total Protein, Blood 5.9 g/dL (6.4-8.2)
[2024-08-15 07:36] VITALS: BP 106/53
[2024-08-15 15:50] VITALS: BP 121/56
[2024-08-15] MEDS ORDERED: Fluconazole 100 MG Tab PO SCH (17:00)
[2024-08-15] MEDS ORDERED: Ondansetron HCl 2 MG / ML 2ML Vial IV PRN (17:05)
[2024-08-15] MEDS ORDERED: Scopolamine Hydrobromide Patch TOP PRN (17:10)
[2024-08-15] MEDS ORDERED: Morphine Sulfate 10 MG/ML 1MLSYR INH PRN (17:10)
[2024-08-15] MEDS ORDERED: Haloperidol Lactate Inj. 5 MG/ML Injection IV PRN (17:10)
[2024-08-15] MEDS ORDERED: Acetaminophen 325 MG TABLET PO PRN (17:10)
[2024-08-15] MEDS ORDERED: Morphine Sulfate 20 MG/1ML 1 ML Oral Syringe SL PRN (17:15)
[2024-08-15] MEDS ORDERED: LORazepam 2 MG/ML 1ML Injection IV PRN (17:15)
[2024-08-15] MEDS ORDERED: Acetaminophen 650 MG Supp PR PRN (17:15)
[2024-08-15] MEDS ORDERED: HYDROmorphone HCl/Pf 1MG SYR IV PRN (17:15)
[2024-08-15] MEDS ORDERED: Morphine Sulfate 10 MG/ML 1MLSYR IV PRN (17:15)
[2024-08-15] MEDS ORDERED: Promethazine HCl 25 MG Supp PR PRN (17:30)
[2024-08-17] MEDS ORDERED: PROM25 PO (09:52)
[2024-08-17] MEDS ORDERED: MORP20L SC (09:52)
[2024-08-17] MEDS ORDERED: TRANSDERM-SCOP1 EA13 TOP (10:09)
[2024-08-17] MEDS ORDERED: MORPHINE S10 MG/1 M3 INH (11:36)
== END 2024-08-17 11:28 | disposition hospice, home (50) | DRG 330 ==
LOC: ER 19:04 → ICUE 21:02 → MEDS 21:02 → PCU 21:02 → SURS 21:02 → ICUE 08-04 01:26 → PCU 08-08 13:46 → SURS 08-09 21:14 → MEDS 08-13 18:32
PROVIDERS: Hospitalist; Internal Medicine; Student in an Organized Health Care Education/Training Program; ADMIT Internal Medicine
PROC: 0DTF0ZZ Resection of Right Large Intestine, Open Approach (ICD-10-PCS; principal; 2024-08-04)
PROC: 8E0W4CZ Robotic Assisted Procedure of Trunk Region, Percutaneous Endoscopic Approach (ICD-10-PCS; 2024-08-04)
DX: K57.20 Diverticulitis of large intestine with perforation and abscess without bleeding (principal); N39.0 Urinary tract infection, site not specified; Z51.5 Encounter for palliative care; E03.9 Hypothyroidism, unspecified; E78.5 Hyperlipidemia, unspecified; Z86.73 Personal history of transient ischemic attack (TIA), and cerebral infarction without residual deficits; Z85.3 Personal history of malignant neoplasm of breast; K66.8 Other specified disorders of peritoneum; Z90.49 Acquired absence of other specified parts of digestive tract; K21.9 Gastro-esophageal reflux disease without esophagitis; E87.6 Hypokalemia; R13.10 Dysphagia, unspecified; Z66 Do not resuscitate; Z91.013 Allergy to seafood; Z85.828 Personal history of other malignant neoplasm of skin; Z90.89 Acquired absence of other organs; Z98.890 Other specified postprocedural states; Z90.11 Acquired absence of right breast and nipple; Z79.82 Long term (current) use of aspirin; Z79.890 Hormone replacement therapy; Z79.899 Other long term (current) drug therapy; E83.51 Hypocalcemia
CPT/HCPCS: 36415; 51702; 51798; 74022; 74176; 74177; 80048; 80053; 81001; 82330; 82947; 83605; 83735; 83880; 84100; 84145; 84478; 85014; 85018; 85025; 85027; 86850; 86900; 86901; 86923; 87040; 87086; 88307; 88342; 92610; 94760; 94762; 96374; 96374-59; 96375; 97110; 97116; 97161; 97530; 99285-25; A9270; C1751; J0780; J1100; J1171; J1650; J1940; J2060; J2270; J2371; J2405; J2543; J2704; J2765; J3010; J3411; J7030; J7050; J7060; J7120; Q9967

== ENCOUNTER → 2024-08-03 | Outpatient (CLI) | payer MEDICARE ==
[2024-08-03 17:47] LABS: BASOPHILS ABSOLUTE AUTO 0.02 K/mm3 (0.00-0.23); BASOPHILS PERCENT AUTO 0 % (0-2); EOSINOPHILS ABSOLUTE AUTO 0.04 K/mm3 (0.00-0.68); EOSINOPHILS PERCENT AUTO 1 % (0-6); Hematocrit 30.8 % (33.0-51.0); Hemoglobin 10.1 g/dL (11.5-16.0); IMMATURE GRAN ABSOLUTE AUTO 0.05 K/mm3 (0.00-0.10); IMMATURE GRAN PERCENT AUTO 1 % (0-1); LYMPHOCYTES ABSOLUTE AUTO 0.79 K/mm3 (0.84-5.20); LYMPHOCYTES PERCENT AUTO 9 % (21-46); MONOCYTES ABSOLUTE AUTO 0.53 K/mm3 (0.16-1.47); MONOCYTES PERCENT AUTO 6 % (4-13); Mean Corpuscular HGB 26.8 pg (26.0-34.0); Mean Corpuscular HGB Conc 32.8 g/dL (31.5-36.5); Mean Corpuscular Volume 82 fL (80-100); Mean Platelet Volume 8.3 fL (9.1-12.4); NEUTROPHILS ABSOLUTE AUTO 7.03 K/mm3 (1.96-9.15); NEUTROPHILS PERCENT AUTO 83 % (41-73); Platelet Count 657 K/mm3 (150-400); RDW Coefficient Variation 15.2 % (11.7-14.2); RDW Standard Deviation 45.2 fL (35.1-46.3); Red Blood Cell Count 3.77 M/mm3 (3.80-5.20); White Blood Cell Count 8.46 K/mm3 (4.00-11.30)
[2024-08-03 17:57] LABS: Albumin, Blood 2.3 g/dL (3.4-5.0); Albumin/Globulin Ratio 0.6 (0.8-1.8); Bilirubin, Total 0.4 mg/dL (0.1-1.0); Bun/Creatinine Ratio 22.6 (12.0-20.0); Calcium, Blood 8.4 mg/dL (8.5-10.1); Creatinine, Blood 0.62 mg/dL (0.40-1.00); Globulin, Blood 3.7 g/dL (2.2-4.0); Potassium, Blood 3.6 mmol/L (3.5-5.5)
== END | disposition home or self-care (01) ==
LOC: LAB 17:43 → LAB SHORT 17:43
PROVIDERS: Physician Assistant
DX: R10.9 Unspecified abdominal pain (principal)
CPT/HCPCS: 80053; 85025